=== PATIENT | male | born 1975 | race Caucasian/White ===

== ENCOUNTER 2018-08-16 17:54 | Emergency (ER) | payer MEDICAID ==
[~2018-08-16] VITALS: Ht 170.2 cm; Wt 70.3 kg
[2018-08-16 17:55] VITALS: BP 188/114
--- NOTE | 2018-08-16 17:55 | NUR ---
PT ARRIVED ALS TO ER ROOM 09
--- NOTE | 2018-08-16 17:55 | NUR ---
PT DENYING GOWN AT THIS TIME
--- NOTE | 2018-08-16 18:00 | NUR ---
BIBA. AAOX4. C/O UNSTOPPABLE NOSE BLEEDING, VOMITING WITH BLOOD X2 TODAY, BM WITH BLOOD X2 TODAY. C/O RINGING IN THE EARS. HEADACHE OF 5/10. PT STATES HE IS A CHRONIC DRINKER. CLEAR SPEECH. STEADY GAIT. 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 HOB UP. BED SIDE RAILS UP X1. ON LOW BED POSITION, LOCKED. ER MADE AWARE OF PT STATUS.
--- NOTE | 2018-08-16 18:05 | NUR ---
CALLED PT'S PER PT REQUEST. CALLED [phone] YOVANNY AND LEFT A MESSAGE.
--- NOTE | 2018-08-16 19:05 | NUR ---
REPORT RECIEVED FROM NORM FORREST. TRANSFER OF CARE AT THIS TIME
[2018-08-16] MEDS ORDERED: NACL 0.9% 500 ML IV SCH (19:07)
[2018-08-16] MEDS ORDERED: ONDANSETRON 4 MG/2 ML VIAL IVP ONE (19:10)
[2018-08-16] MEDS ORDERED: PANTOPRAZOLE 40 MG INJ VIAL IVP ONE (19:10)
--- NOTE | 2018-08-16 19:12 | NUR ---
EKG PERFORMED AT BEDSIDE.
--- NOTE | 2018-08-16 19:13 | NUR ---
Pt report given to NORM Cruz. Transfer of care at this time.
--- NOTE | 2018-08-16 19:32 | NUR ---
PT TAKEN TO RADIOLOGY
[2018-08-16 19:39] LABS: BASOPHILS # (AUTO) 0.1 K/uL (0.00-0.22); BASOPHILS % (AUTO) 1.2 % (0.0-2.0); EOSINOPHILS # (AUTO) 0.1 K/uL (0-0.4); EOSINOPHILS % (AUTO) 1.1 % (0.0-4.0); HEMATOCRIT 39.5 % (36-52); HEMOGLOBIN 13.1 g/dL (12.0-18.0); LYMPHOCYTES # (AUTO) 1.5 K/uL (2.0-11.5); LYMPHOCYTES % (AUTO) 28.6 % (20.5-51.1); MEAN CORPUSCULAR HEMOGLOBIN 30 pg (27-31); MEAN CORPUSCULAR HGB CONC 33 g/dL (33-37); MEAN CORPUSCULAR VOLUME 91.6 fL (80-94); MONOCYTES # (AUTO) 0.4 K/uL (0.8-1.0); MONOCYTES % (AUTO) 7.4 % (1.7-9.3); NEUTROPHILS # (AUTO) 3.3 K/uL (1.8-7.7); NEUTROPHILS % (AUTO) 61.7 % (42.2-75.2); PLATELET COUNT (AUTO) 210 K/uL (140-450); RED BLOOD CELL COUNT(AUTO) 4.31 MIL/uL (4.20-6.10); RED CELL DISTRIBUTION WIDTH 13.3 % (11.6-13.7); WHITE BLOOD COUNT (AUTO) 5.3 K/uL (4.8-10.8)
--- NOTE | 2018-08-16 19:41 | NUR ---
PT RETURN FROM RADIOLOGY
[2018-08-16 19:56] LABS: ALBUMIN 4.3 g/dL (3.4-5.0); ANION GAP 19.5 (8-16); CARBON DIOXIDE 23.6 mmol/L (21-32); CREATININE 0.6 mg/dL (0.7-1.3); POTASSIUM 4.1 mmol/L (3.5-5.1); TOTAL BILIRUBIN 0.3 mg/dL (0.0-1.0)
[2018-08-16] MEDS ORDERED: NACL 0.9% 1,000 ML IV ONE (20:40)
[2018-08-16] MEDS ORDERED: NACL 0.9% 1,000 ML IV SCH (21:38)
[2018-08-16] MEDS ORDERED: DOCUSATE SODIUM 100 MG GELCAP PO PRN (21:40)
[2018-08-16] MEDS ORDERED: ACETAMINOPHEN 325 MG TAB PO PRN (21:40)
[2018-08-16] MEDS ORDERED: HYDROcodone/APAP 7.5/325 MG 1 TAB PO PRN (21:40)
[2018-08-16] MEDS ORDERED: ONDANSETRON 4 MG/2 ML VIAL IM/IVP PRN (21:40)
[2018-08-16 21:58] VITALS: BP 138/92
--- NOTE | 2018-08-16 21:58 | NUR ---
PATIENT REFUSING ADMISSION. WISHING TO LEAVE AMA. Patient does not wish to proceed with medical care recommended by [facility]. Patient given information related to possible complications, up to and including , which could occur as a result of leaving hospital at this time. Patient verbalizes understanding of risks involved leaving against medical advice. Patient has signed AMA form.
[2018-08-16 23:41] LABS: CHOL/HDL RATIO 1.9 (1-4.5); MAGNESIUM 1.9 mg/dL (1.8-2.4); PHOSPHORUS 4.6 mg/dL (2.5-4.9); THYROID STIMULATING HORMONE 0.26 uIU/mL (0.34-3.74)
[2018-08-16 23:42] LABS: FREE T4 (FREE THYROXINE) 0.68 ng/dL (0.76-1.46)
[2018-08-17] MEDS ORDERED: LACTOBACILLUS RHAMNOSUS GG 1 EACH CAP PO SCH (09:00)
--- NOTE | 2018-08-25 12:20 | NUR ---
Late entry. Confirmed with RN that 500ml IV bolus 0.9 NS completed at 1900.
== END 2018-08-16 21:58 | disposition left against medical advice (07) ==
LOC: EDBD → MED 17:54 → MTU 21:38 → UNDOADMIN 21:38 → MED 21:58
DX: K92.2 Gastrointestinal hemorrhage, unspecified (principal); F10.129 Alcohol abuse with intoxication, unspecified; I10 Essential (primary) hypertension; Z88.0 Allergy status to penicillin
CPT/HCPCS: 36415; 71045; 74176; 80053; 80061; 82140; 82550; 82948; 83036; 83605; 83690; 83735; 83880; 84100; 84439; 84443; 84484; 85025; 85610; 85730; 87040; 93005; 96374; 96375; 99284; C9113; G0482; J2405; J7030; Q0092

== ENCOUNTER 2018-08-17 15:20 | Inpatient (IN) | payer MEDICAID ==
[~2018-08-17] VITALS: Ht 170.2 cm; Wt 64.4 kg
[2018-08-17 15:21] VITALS: BP 165/116
--- NOTE | 2018-08-17 15:36 | NUR ---
PT BIB SELF TO [facility] ED WITH THE CHIEF C/O EPISTAXIS FOR 3 DAYS. NO ACTIVE BLEEDING NOTED AT THIS TIME. DENIES ANY RECENT FALL OR INJURY. DENIES DIZZINESS. DENIES ANY OTHER PROBLEM AT THIS TIME. PT WAS HERE LAST NIGHT FOR SAME REASON. NOT TAKING ANY MEDICINE CURRENTLY PER PT. DENIES ANY RECENT FEVER. PT REPORTS OF HAVING BLOOD IN STOOL ALSO. ABDOMEN SOFT, ROUND AND NON-TENDER. ACTIVE BOWEL SOUND. DENIES N/V/D. ER AWARE.
--- NOTE | 2018-08-17 16:25 | NUR ---
PT BEING EVALUATED BY DIRECTOR OF PAYROLL AT THIS TIME.
--- NOTE | 2018-08-17 17:27 | NUR ---
PT SEEN BY DOLORES FERNANDEZ.
[2018-08-17 17:28] LABS: BASOPHILS # (AUTO) 0.1 K/uL (0.00-0.22); BASOPHILS % (AUTO) 0.9 % (0.0-2.0); EOSINOPHILS # (AUTO) 0.1 K/uL (0-0.4); EOSINOPHILS % (AUTO) 1.7 % (0.0-4.0); HEMATOCRIT 39.3 % (36-52); HEMOGLOBIN 13.3 g/dL (12.0-18.0); LYMPHOCYTES % (AUTO) 35.6 % (20.5-51.1); MEAN CORPUSCULAR HEMOGLOBIN 31 pg (27-31); MEAN CORPUSCULAR HGB CONC 34 g/dL (33-37); MEAN CORPUSCULAR VOLUME 92.4 fL (80-94); MONOCYTES # (AUTO) 0.4 K/uL (0.8-1.0); MONOCYTES % (AUTO) 6.2 % (1.7-9.3); NEUTROPHILS # (AUTO) 3.2 K/uL (1.8-7.7); NEUTROPHILS % (AUTO) 55.6 % (42.2-75.2); PLATELET COUNT (AUTO) 181 K/uL (140-450); RED BLOOD CELL COUNT(AUTO) 4.25 MIL/uL (4.20-6.10); WHITE BLOOD COUNT (AUTO) 5.8 K/uL (4.8-10.8)
[2018-08-17 17:40] LABS: CARBON DIOXIDE 26.3 mmol/L (21-32); CREATININE 0.6 mg/dL (0.7-1.3); POTASSIUM 4.3 mmol/L (3.5-5.1)
[2018-08-17] MEDS ORDERED: PANTOPRAZOLE 40 MG INJ VIAL IVP ONE (17:40)
[2018-08-17] MEDS ORDERED: ONDANSETRON 4 MG/2 ML VIAL IVP ONE (17:40)
[2018-08-17] MEDS ORDERED: NACL 0.9% 1,000 ML IV ONE (17:40)
[2018-08-17 18:15] LABS: TOTAL BILIRUBIN 0.3 mg/dL (0.0-1.0)
[2018-08-17 18:16] LABS: ALBUMIN 4.3 g/dL (3.4-5.0)
[2018-08-17 18:18] LABS: PROTHROMBIN TIME 9.4 secs (10.8-13.4)
--- NOTE | 2018-08-17 18:32 | NUR ---
PT APPEARS TO BE RELAXED, RESTING IN BED. NO NASAL BLEED NOTED AT THIS TIME. NO C/O DIZZINESS OR NAUSEA NOTED. NO C/O PAIN AT THIS TIME. SATURATING 97% IN ROOM AIR. ER MD AWARE OF VS.
[2018-08-17] MEDS ORDERED: HYDROcodone/APAP 7.5/325 MG 1 TAB PO PRN (18:45)
[2018-08-17] MEDS ORDERED: ONDANSETRON 4 MG/2 ML VIAL IM/IVP PRN (18:45)
[2018-08-17] MEDS ORDERED: ACETAMINOPHEN 325 MG TAB PO PRN (18:45)
[2018-08-17] MEDS ORDERED: DOCUSATE SODIUM 100 MG GELCAP PO PRN (18:45)
--- NOTE | 2018-08-17 19:07 | NUR ---
Patient will be admitted to care of Dr. Pike. Admited to tele unit. Will go to room 105B. Belongings list completed.
[2018-08-17] MEDS ORDERED: hydrALAZINE 20 MG/ML VIAL IVP PRN (19:10)
--- NOTE | 2018-08-17 19:15 | NUR ---
PT TRANSFERRED TO TELE UNIT 105B VIA GURELIZABETH ON STABLE CONDITION. REPORT GIVEN TO NORM RG. BELONGINGS WITH PATIENT.
--- NOTE | 2018-08-17 19:20 | NUR ---
RECEIVED REPORT FROM CRANE HOOKERNORM ACOSTA FOR CONTINUITY OF CARE. PT IS A/OX4, ON ROOM AIR. PT IS ABLE TO FOLLOW COMMANDS, ABLE TO MAKE NEEDS KNOWN. AMBULATES WITH STEADY GAIT AND SKIN IS INTACT. PT HAS A 20G IV TO RIGHT AC, ASYMPTOMATIC AND INTACT. NO SIGNS OF DISTRESS NOTED AT THIS TIME. DISCUSSED PLAN OF CARE WITH PT, PT VERBALIZED UNDERSTANDING. PT DENIES PAIN. VITAL SIGNS STABLE. POSITIONED PT FOR COMFORT. BED IN LOWEST POSITION AND CALL LIGHT WITHIN REACH. WILL CONTINUE TO MONITOR. MRSA SWAB OBTAINED AND SENT TO LAB.
[2018-08-17 19:48] LABS: CHOL/HDL RATIO 1.8 (1-4.5); MAGNESIUM 1.8 mg/dL (1.8-2.4); PHOSPHORUS 3.8 mg/dL (2.5-4.9)
[2018-08-17 20:00] VITALS: BP 152/90
[2018-08-17 20:04] LABS: APPEARANCE,URINE CLEAR (CLEAR); BILIRUBIN,URINE NEGATIVE (NEGATIVE); BLOOD, URINE NEGATIVE (NEGATIVE); COLOR,URINE YELLOW (YELLOW); LEUKOCYTE ESTERASE ,URINE NEGATIVE (NEGATIVE); NITRITE, URINE NEGATIVE (NEGATIVE); PH,URINE 5.5 (5.0-9.0); UGLUCOSE NEGATIVE (NEGATIVE)
[2018-08-17 20:10] LABS: FREE T4 (FREE THYROXINE) 0.65 ng/dL (0.76-1.46); THYROID STIMULATING HORMONE 0.33 uIU/mL (0.34-3.74)
[2018-08-17 20:10] LABS: BARBITURATE, URINE NEG. ng/ml (NEG <=200); BENZODIAZEPINE, URINE NEG. ng/mL (NEG <=200); CANNABINOID, URINE NEG. ng/mL (NEG <=50); COCAINE, URINE NEG. ng/mL (NEG <=300); OPIATE, URINE NEG. ng/mL (NEG <=2000); PHENCYCLIDINE SCREEN,URINE NEG. ng/mL (NEG <=25)
[2018-08-17] MEDS ORDERED: LORazepam 2 MG/ML VIAL IVP SCH (21:00)
[2018-08-17] MEDS: DEXT 5% /NACL 0.9% 1,000 ML IV SCH (21:00)
[2018-08-17] MEDS: ATORVASTATIN 20 MG TAB PO SCH (21:12)
--- NOTE | 2018-08-17 21:15 | NUR ---
ADMINISTERED SCHEDULED MEDICATIONS, PT TOLERATED WELL. BED IN LOWEST POSITION, CALL LIGHT WITHIN REACH. WILL CONTINUE TO MONITOR.
[2018-08-18] VITALS: BP 148/81
--- NOTE | 2018-08-18 | NUR ---
VITAL SIGNS STABLE, NO SIGNS OF DISTRESS NOTED. POSITIONED PT FOR COMFORT. BED IN LOWEST POSITION AND CALL LIGHT WITHIN REACH. WILL CONTINUE TO MONITOR.
[2018-08-18] MEDS ORDERED: PNEUMOCOCCAL VACCINE 23 MCG/0.5 ML VIAL IMVAC ONE (01:10)
[2018-08-18] MEDS ORDERED: PNEUMOCOCCAL VACCINE 23 MCG/0.5 ML VIAL IMVAC PRN (01:40)
[2018-08-18] MEDS ORDERED: LORazepam 2 MG/ML VIAL IVP PRN (03:05)
[2018-08-18 04:00] VITALS: BP 143/86
[2018-08-18] MEDS: LORazepam 2 MG/ML VIAL IVP SCH ×3 (05:52→21:08)
[2018-08-18] MEDS: DEXT 5% /NACL 0.9% 1,000 ML IV SCH ×2 (05:52→19:50)
[2018-08-18] MEDS ORDERED: LORazepam 1 MG TAB PO SCH (06:00)
[2018-08-18 06:41] LABS: BASOPHILS % (AUTO) 0.6 % (0.0-2.0); EOSINOPHILS # (AUTO) 0.1 K/uL (0-0.4); EOSINOPHILS % (AUTO) 2.3 % (0.0-4.0); HEMATOCRIT 37.4 % (36-52); HEMOGLOBIN 12.6 g/dL (12.0-18.0); LYMPHOCYTES # (AUTO) 1.2 K/uL (2.0-11.5); LYMPHOCYTES % (AUTO) 26.4 % (20.5-51.1); MEAN CORPUSCULAR HEMOGLOBIN 31 pg (27-31); MEAN CORPUSCULAR HGB CONC 34 g/dL (33-37); MEAN CORPUSCULAR VOLUME 92.9 fL (80-94); MONOCYTES # (AUTO) 0.4 K/uL (0.8-1.0); MONOCYTES % (AUTO) 9.5 % (1.7-9.3); NEUTROPHILS # (AUTO) 2.9 K/uL (1.8-7.7); NEUTROPHILS % (AUTO) 61.2 % (42.2-75.2); PLATELET COUNT (AUTO) 155 K/uL (140-450); RED BLOOD CELL COUNT(AUTO) 4.02 MIL/uL (4.20-6.10); RED CELL DISTRIBUTION WIDTH 13.7 % (11.6-13.7); WHITE BLOOD COUNT (AUTO) 4.7 K/uL (4.8-10.8)
[2018-08-18 07:05] LABS: ANION GAP 16.2 (8-16); CARBON DIOXIDE 25.9 mmol/L (21-32); CREATININE 0.6 mg/dL (0.7-1.3); POTASSIUM 4.1 mmol/L (3.5-5.1)
[2018-08-18 07:06] LABS: MAGNESIUM 1.6 mg/dL (1.8-2.4); PHOSPHORUS 3.8 mg/dL (2.5-4.9)
--- NOTE | 2018-08-18 07:35 | NUR ---
ENDORSED PT TO DAY SHIFT NORM CRONIN FOR CONTINUITY OF CARE. PT IN STABLE CONDITION.
--- NOTE | 2018-08-18 07:40 | NUR ---
RECEIVED PT FROM SUPERVISOR TRUST ACCOUNTS NURSEARCENIO, PT IS AWAKE AND LYING ON THE BED WITH A PERIPHERAL LINE ON THE LEFT AC G.20 WITH D5NS INFUSING AT 80ML/HR, INTACT, PT DENIES PAIN AND NO SOB NOTED, SAFETY PRECAUTION INITIATED AND NO SIGN OF DISTRESS NOTED. WILL MONITOR PT.
[2018-08-18 08:00] VITALS: BP 160/100
--- NOTE | 2018-08-18 08:10 | NUR ---
PATIENT HAS BEEN SCREENED AND CATEGORIZED MODERATE NUTRITION RISK. PATIENT WILL BE SEEN WITHIN 3-5 DAYS OF ADMISSION. 08/19/18NEL RAJAN RD
[2018-08-18] MEDS ORDERED: MULTIVITAMIN-12 10 ML, THIAMINE 100 MG, MAGNESIUM SULFATE 50% 2,000 MG, FOLIC ACID 1 MG... IV SCH ×5 (09:00)
[2018-08-18] MEDS: FOLIC ACID 1 MG TAB PO SCH (09:35)
[2018-08-18] MEDS: THIAMINE 100 MG TAB PO SCH (09:35)
[2018-08-18] MEDS: MULTIVITAMIN 1 TAB PO SCH (09:35)
[2018-08-18] MEDS: PANTOPRAZOLE 40 MG INJ VIAL IVP SCH (09:35)
[2018-08-18 12:00] VITALS: BP 157/98
--- NOTE | 2018-08-18 12:18 | NUR ---
PT IS AWAKE AND VITAL SIGNS CHECKED DONE AND BP IS 162/99, PULSE IS 89, O2 SATURATION IS 98%, RESPIRATION IS 18/MIN, DR. BRAND WAS INFORMED OF PT'S BP RESULT. IV MEDICATION WAS GIVEN AND PT TOLERATED IT. WILL RE-CHECK BP.
--- NOTE | 2018-08-18 12:23 | NUR ---
PT; BP WAS RECHECKED AND RESULT IS 157/98, PULSE IS 86, TEMPERATURE IS 98.3, O2 SATURATION IS 98% AND RESPIRATION IS 18/MIN. WILL MONITOR PT.
--- NOTE | 2018-08-18 14:14 | NUR ---
DR. BRAND MADE A VERBAL ORDER TO GIVE ATIVAN TO PT AGAIN IF BP IS STILL HIG, ACKNOWLEDGED AND WILL CARRY OUT VERBAL ORDER.
--- NOTE | 2018-08-18 14:37 | NUR ---
PT IS AWAKE AND SEATED ON THE CHAIR WATCHING ON HIS CP, VITAL SIGNS CHECKED AND BP IS 168/101, PULSE IS 98, O2 SATURATION IS 98%, ATIVAN WAS GIVEN AND PT TOLERATED IT. WILL MONITOR PT.
--- NOTE | 2018-08-18 14:40 | NUR ---
DR. DIGGS CAME TO THE PT'S ROOM AND SPOKE TO PT AND ASKED THE PT IF PT AGREES TO HAVE A COLONOSCOPY AND EGD AND PT AGREED AND ACKNOWLEDGE TO SIG THE CONSENTS.
[2018-08-18] MEDS ORDERED: BOWEL EVACUANT DRINK 4,000 ML PDS PO SCH (15:15)
--- NOTE | 2018-08-18 15:36 | NUR ---
PT SIGNED THE CONSENTS FOR EGD AND COLONOSCOPY, AND VERBALIZED UNDERSTANDING, BOWEL PREPARATION WAS GIVEN AND INSTRUCTION WAS ASID TO PT WELL.
[2018-08-18 16:00] VITALS: BP 167/108
[2018-08-18] MEDS: SENNA 8.6 MG TAB PO SCH ×2 (17:19→21:07)
--- NOTE | 2018-08-18 17:29 | NUR ---
PT IS AWAKE AND SEATED ON THE CHAIR, VITAL SIGNS TAKEN AND INFORMATION ENGINEER IS 167/108, PULSE IS 90, O2 SATURATION IS 99%, BP MEDICATION AND MAGNESIUM SULFATE TABLETS WERE GIVEN AND PT TOLERATED IT. WILL MONITOR PT.
[2018-08-18] MEDS ORDERED: MAGNESIUM OXIDE 400 MG TAB PO SCH (17:30)
[2018-08-18] MEDS ORDERED: LISINOPRIL 10 MG TAB PO SCH (17:30)
--- NOTE | 2018-08-18 18:22 | NUR ---
PT WAS GIVEN HYDRALAZINE VIA IVP FOR THE BP RESULT OF 191/116, PULSE IS 91, O2 SATURATION IS 99%, DR. BRAND WAS INFORMED OF PT'S BP RESULT. WILL RE-ASSESS BP AND MONITOR PT.
--- NOTE | 2018-08-18 19:22 | NUR ---
ENDORSED PT TO GETTER WELDER NURSES, AUBRIE FOR CONTINUITY OF CARE, ON THE BEDSIDE.
--- NOTE | 2018-08-18 19:23 | NUR ---
RECEIVED BEDSIDE REPORT FROM DAY SHIFT RNMEHRDAD, PATIENT SITTING UP IN BED NO SIGNS OF DISTRESS ON RA, AT BEDSIDE. IV INFUSING WELL TO RIGHT AC 20G, WILL CONTINUE TO MONITOR.
[2018-08-18 20:00] VITALS: BP 162/96
[2018-08-18] MEDS ORDERED: MAGNESIUM CITRATE 300 ML BTL PO SCH (21:00)
[2018-08-18] MEDS: LACTULOSE 20 GM/30 ML UDC PO SCH (21:07)
[2018-08-18] MEDS: ATORVASTATIN 20 MG TAB PO SCH (21:08)
--- NOTE | 2018-08-18 22:30 | NUR ---
PATIENT RESTING IN BED, WATCHING TV, NO SIGNS OF DISTRESS ON RA, PATIENT HAS FINISHED HIS GOLYTELY AND IS DRINKING HIS CITROMA. ENCOURAGED PATIENT TO COMPLETE BOWEL PREP.
[2018-08-19] VITALS: BP 153/102
--- NOTE | 2018-08-19 00:30 | NUR ---
PATIENT IS SLEEPING IN BED, NO SIGNS OF DISTRESS ON RA, CALL LIGHT IN REACH AND BED IN LOW POSITION.
--- NOTE | 2018-08-19 02:30 | NUR ---
PATIENT SLEEPING, NO SIGNS OF DISTRESS ON RA, WILL CONTINUE TO MONITOR.
[2018-08-19 04:00] VITALS: BP 150/91
--- NOTE | 2018-08-19 05:23 | NUR ---
PATIENT AMBULATED TO BATHROOM AND IS NOW RESTING COMFORTABLY IN BED, NO SIGNS OF DISTRESS ON RA.
--- NOTE | 2018-08-19 05:26 | NUR ---
PATIENT HAS COMPLETED BOWEL PREP, STOOL IS CLEAR AND WATERY.
[2018-08-19] MEDS: LORazepam 2 MG/ML VIAL IVP SCH ×2 (05:33→13:00)
--- NOTE | 2018-08-19 06:11 | NUR ---
PATIENT IS READY FOR COLONOSCOPY AND EGD, WATERY STOOLS, WILL BE ENDORSED TO DAY SHIFT RN FOR CONTINUITY OF CARE.
[2018-08-19 07:03] LABS: ANION GAP 14.7 (8-16); CARBON DIOXIDE 26.1 mmol/L (21-32); CREATININE 0.7 mg/dL (0.7-1.3); POTASSIUM 3.8 mmol/L (3.5-5.1)
[2018-08-19 07:04] LABS: PHOSPHORUS 3.3 mg/dL (2.5-4.9)
[2018-08-19 07:08] LABS: BASOPHILS % (AUTO) 0.7 % (0.0-2.0); EOSINOPHILS # (AUTO) 0.1 K/uL (0-0.4); EOSINOPHILS % (AUTO) 2.9 % (0.0-4.0); HEMOGLOBIN 12.7 g/dL (12.0-18.0); LYMPHOCYTES # (AUTO) 1.4 K/uL (2.0-11.5); LYMPHOCYTES % (AUTO) 28.3 % (20.5-51.1); MEAN CORPUSCULAR HEMOGLOBIN 31 pg (27-31); MEAN CORPUSCULAR HGB CONC 33 g/dL (33-37); MEAN CORPUSCULAR VOLUME 93.4 fL (80-94); MONOCYTES # (AUTO) 0.8 K/uL (0.8-1.0); MONOCYTES % (AUTO) 15.4 % (1.7-9.3); NEUTROPHILS # (AUTO) 2.6 K/uL (1.8-7.7); NEUTROPHILS % (AUTO) 52.7 % (42.2-75.2); PLATELET COUNT (AUTO) 143 K/uL (140-450); RED BLOOD CELL COUNT(AUTO) 4.07 MIL/uL (4.20-6.10); RED CELL DISTRIBUTION WIDTH 13.5 % (11.6-13.7)
--- NOTE | 2018-08-19 07:21 | NUR ---
ENDORSED TO DAY SHIFT RN, MEHRDAD, FOR CONTINUITY OF CARE. PATIENT IN STABLE CONDITION.
--- NOTE | 2018-08-19 07:30 | NUR ---
RECEIVED PT FROM HEAD NURSE NURSE, AUBRIE, PT IS AWAKE AND LYING ON THE BED WITH AN IV LINE ON THE RT AC G. 20 WITH D5NS INFUSING AST 80ML/HR, INTACT. SIDE RAILS ARE UP AND CALL LIGHT WITHIN REACH, PT DENIES PAIN AND WAS PLACED ON NPO EXCEPT MEDS, NO SIGN OF DISTRESS NOTED AND WILL MONITOR PT.
[2018-08-19 08:00] VITALS: BP 158/102
--- NOTE | 2018-08-19 08:15 | NUR ---
PT IS AWAKE AND VITAL SIGNS CHECKED AND BP IS 168/102, PULSE IS 68, O2 SATURATION IS 100%, TEMPERATURE IS 97.9 AND RESPIRATION IS 16/MIN, DR. BRAND WAS INFORMED OF PT'S BP RESULT AND SAID THAT HE WILL PLACE AN ORDER AND INCREASE THE DOSE OF PT'S BP MEDICATION.
[2018-08-19] MEDS: DEXT 5% /NACL 0.9% 1,000 ML IV SCH (08:49)
[2018-08-19] MEDS ORDERED: MAGNESIUM OXIDE 400 MG TAB PO SCH (09:00)
[2018-08-19] MEDS ORDERED: LISINOPRIL 10 MG TAB PO SCH ×2 (09:00→11:00)
[2018-08-19] MEDS: LACTULOSE 20 GM/30 ML UDC PO SCH (09:21)
[2018-08-19] MEDS: SENNA 8.6 MG TAB PO SCH ×3 (09:21→17:00)
[2018-08-19] MEDS: MULTIVITAMIN 1 TAB PO SCH (09:22)
[2018-08-19] MEDS: FOLIC ACID 1 MG TAB PO SCH (09:22)
[2018-08-19] MEDS: THIAMINE 100 MG TAB PO SCH (09:22)
[2018-08-19] MEDS: PANTOPRAZOLE 40 MG INJ VIAL IVP SCH (09:23)
--- NOTE | 2018-08-19 10:30 | NUR ---
PT WAS DOWNGRADE TO MED-SURG NOW, MATERNAL CHILD NURSE WAS REMOVED.
--- NOTE | 2018-08-19 11:34 | NUR ---
PT IS AWAKE AND SEATED ON THE CHAIR, VITAL SIGNS CHECKED AND BP IS 166/115, PULSE IS 82, O2 SATURATION IS 98%, TEMPERATURE IS 98.2, PT DENIES PAIN AND NO SIGN OF DISTRESS NOTED, LISINOPRIL WAS GIVEN AND PT TOLERATED IT. WILL MONITOR PT.
[2018-08-19 12:00] VITALS: BP 155/91
[2018-08-19] MEDS ORDERED: fentaNYL 0.05 MG/ML VIAL ONE ×3 (13:09→13:33)
[2018-08-19] MEDS ORDERED: MIDAZOLAM 2 MG/2 ML VIAL ONE ×3 (13:09→13:34)
[2018-08-19] MEDS ORDERED: diphenhydrAMINE 50 MG/ML VIAL ONE (13:10)
--- NOTE | 2018-08-19 14:00 | NUR ---
PT IS BACK TO ROOM FROM COLONOSCOPY AND EGD, PT IS STABLE.
[2018-08-19] MEDS ORDERED: LABETALOL 100 MG/20 ML VIAL ONE ×2 (14:24→14:25)
[2018-08-19] MEDS ORDERED: MIDAZOLAM 2 MG/2 ML VIAL IVP ONE (14:25)
[2018-08-19] MEDS ORDERED: fentaNYL 0.05 MG/ML VIAL IVP ONE (14:25)
[2018-08-19] MEDS ORDERED: LABETALOL 100 MG/20 ML VIAL IVP SCH (14:30)
[2018-08-19] MEDS ORDERED: SERT-146 PO (14:54)
[2018-08-19] MEDS ORDERED: LISI-420 PO (14:55)
[2018-08-19] MEDS ORDERED: MULT-1305 PO (14:57)
[2018-08-19 16:00] VITALS: BP 138/70
--- NOTE | 2018-08-19 17:10 | NUR ---
DISCHARGED PT BY HIMSELF AND ACCOMPANIED TO THE LOBBY, DISCHARGED TEACHING AND INSTRUCTIONS WERE GIVEN AND PT VERBALIZED UNDERSTANDING. IV LINE AND ARM BAND WERE REMOVED, VITAL SIGNS CHECKED DONE AND BP IS 138/70, PULSE IS 87, O2 SATURATION IS 100%, TEMPERATURE IS 97.5 AND PT DENIES ANY PAIN NOW. PT IS STABLE.
[2018-08-19] MEDS ORDERED: traZODone 50 MG TAB PO SCH (21:00)
[2018-08-19] MEDS ORDERED: METOPROLOL 50 MG TAB PO SCH (21:00)
[2018-08-20] MEDS ORDERED: PSYLLIUM 12.2 GM/PKT PO SCH (09:00)
[2018-08-20] MEDS ORDERED: LISINOPRIL 10 MG TAB PO SCH (09:00)
== END 2018-08-19 17:10 | disposition home or self-care (01) | DRG 254 ==
LOC: EDBD → MED 15:20 → MTU 18:44
PROVIDERS: ADMIT General Practice; ATTEND General Practice
PROC: 0DBP8ZZ Excision of Rectum, Via Natural or Artificial Opening Endoscopic (ICD-10-PCS; 2018-08-19)
PROC: 0DB78ZX Excision of Stomach, Pylorus, Via Natural or Artificial Opening Endoscopic, Diagnostic (ICD-10-PCS; principal; 2018-08-19 15:50)
PROC: 0DBG8ZZ Excision of Left Large Intestine, Via Natural or Artificial Opening Endoscopic (ICD-10-PCS; 2018-08-19 15:50)
DX: K64.8 Other hemorrhoids (principal); G92 Toxic encephalopathy; K57.91 Diverticulosis of intestine, part unspecified, without perforation or abscess with bleeding; E83.42 Hypomagnesemia; E07.81 Sick-euthyroid syndrome; E78.5 Hyperlipidemia, unspecified; F41.9 Anxiety disorder, unspecified; Z88.0 Allergy status to penicillin; R74.0 Nonspecific elevation of levels of transaminase and lactic acid dehydrogenase [LDH]; D72.819 Decreased white blood cell count, unspecified; K63.5 Polyp of colon; F32.9 Major depressive disorder, single episode, unspecified; F10.239 Alcohol dependence with withdrawal, unspecified; G47.00 Insomnia, unspecified; I10 Essential (primary) hypertension
CPT/HCPCS: 36415; 71045; 76700; 80048; 80053; 80305; 81003; 82140; 82550; 83605; 83690; 83735; 83880; 84100; 84439; 84443; 84484; 85025; 85610; 85730; 86677; 86886; 86900; 86901; 87081; 88305; 93005; 99285; A9153; C9113; G0482; J0360; J1200; J2060; J2250; J2405; J3010; J3411; J3475; J3490; J7030; J7042; Q0092

== ENCOUNTER 2018-09-18 10:07 | Emergency (ER) | payer SELFPAY ==
[~2018-09-18] VITALS: Ht 165.1 cm; Wt 56.7 kg
[~2018-09-18 10:07] MED LIST: LISI-420 PO; MULT-1305 PO; SERT-146 PO
[2018-09-18 10:37] VITALS: BP 154/92
--- NOTE | 2018-09-18 10:41 | NUR ---
PT TO ER BED 2
--- NOTE | 2018-09-18 10:46 | NUR ---
44 Y MALE BIB C/O RIGHT KNEE LACERATION REPAIRED IN [facility] LAST WEEK. 3 CECI REMAIN INTACT. +SWELLING, +REDNESS NOTED SURROUNDING WOUND. NO PURULENT DRAINAGE NOTED. PALPABLE PEDAL PULSE, CAP REFILL <3 SECONDS. 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 AA0X4. BED IS DOWN, LOCKED, BED RAIL X 1, ERMD TO SEE PT. HX--ALCOHOLISM, HTN RX--NONE
--- NOTE | 2018-09-18 11:33 | NUR ---
CECI REMOVED BY SOLO MADRID, DR MAIN MADE AWARE
[2018-09-18] MEDS ORDERED: BACITRACIN OINT 500 UNITS/GM PKT TP ONE (11:55)
[2018-09-18] MEDS ORDERED: CLINDAMYCIN 600 MG/4 ML VIAL IM ONE (11:55)
[2018-09-18 12:19] VITALS: BP 141/89
== END 2018-09-18 12:19 | disposition home or self-care (01) ==
LOC: MED 10:07
DX: T81.49XA Infection following a procedure, other surgical site, initial encounter (principal); L08.9 Local infection of the skin and subcutaneous tissue, unspecified; I10 Essential (primary) hypertension; Z88.0 Allergy status to penicillin; Z79.899 Other long term (current) drug therapy
CPT/HCPCS: 29505; 90471; 90715; 96372; 99284; J3490

== ENCOUNTER 2019-06-21 22:31 | Emergency (ER) | payer SELFPAY ==
--- NOTE | 2019-06-21 23:00 | NUR ---
PATIENT CALLED TO BE TRIAGE NO RESPONSE PATIENT LEFT WITHOUT BEING SEEN BY DR. MAIN. NO FURTHER CARE PROVIDED FOR PATIENT.
--- NOTE | 2019-06-21 23:05 | NUR ---
CALLED FOR THE SECOND TIME ,NO RESPONSE
--- NOTE | 2019-06-21 23:10 | NUR ---
CALLED FOR THE THIRD TIME , NO RESPONSE
== END 2019-06-21 23:00 | disposition left against medical advice (07) ==
LOC: MED 22:31
DX: R42 Dizziness and giddiness (principal); Z53.21 Procedure and treatment not carried out due to patient leaving prior to being seen by health care provider

== ENCOUNTER 2020-02-10 17:54 | Emergency (ER) | payer SELFPAY ==
[~2020-02-10] VITALS: Ht 170.2 cm; Wt 68.0 kg
[2020-02-10 17:56] VITALS: BP 159/97
--- NOTE | 2020-02-10 18:02 | NUR ---
PT PRESENTS TO THE ER WITH LACERATION TO LEFT 3RD DIGIT WHILE USING A SAW. VISIBLE DEFORMITY, WITH TISSUE MISSING, NO ACTIVELY BLEEDING AT THIS TIME. RADIAL PULSES PALPABLE +2. CMS+. SKIN IS PINK/WARM/DRY; AAOX4 WITH EVEN AND STEADY GAIT; PT DENIES ANY FEVER, CP, SOB, OR COUGH AT THIS TIME; PATIENT STATES PAIN OF 0/10 AT THIS TIME; VSS; PATIENT POSITIONED FOR COMFORT; HOB ELEVATED; BEDRAILS UP X1; BED DOWN. ER MD MADE AWARE OF PT STATUS.
--- NOTE | 2020-02-10 18:03 | NUR ---
PATIENT AMBULATED TO ER BED 12
[2020-02-10] MEDS ORDERED: KETOROLAC 60 MG/2 ML VIAL IM ONE (18:10)
[2020-02-10] MEDS ORDERED: BACITRACIN OINT 500 UNITS/GM PKT TP ONE (18:10)
[2020-02-10] MEDS ORDERED: LIDOCAINE MPF 1% 10 MG/ML VIAL INJ ONE (18:10)
--- NOTE | 2020-02-10 18:15 | NUR ---
XRAY IS AT BEDSIDE.
--- NOTE | 2020-02-10 19:01 | NUR ---
APPLIED BACITRACIN TO PT LAC, PT LAC DRESSED WITH NON ADHERENT GUAZE PAD AND WRAPPED WITH 2" GUAZE ROLL, PT FINGER PLACED IN 2" ALUMINUM FINGER SPLINT. PA AND RN NOTIFIED
[2020-02-10 19:12] VITALS: BP 141/87
--- NOTE | 2020-02-10 19:12 | NUR ---
Patient discharged with v/s stable. Written and verbal after care instructions given and explained. Patient alert, oriented and verbalized understanding of instructions. Ambulatory with steady gait. All questions addressed prior to discharge. ID band removed. Patient advised to follow up with PMD. Rx of Cephalexin and Naprosyn given. Patient educated on indication of medication including possible reaction and side effects. Opportunity to ask questions provided and answered.
== END 2020-02-10 19:12 | disposition home or self-care (01) ==
LOC: MED 17:54
DX: S62.633A Displaced fracture of distal phalanx of left middle finger, initial encounter for closed fracture (principal); W45.8XXA Other foreign body or object entering through skin, initial encounter; Y93.89 Activity, other specified; Y92.89 Other specified places as the place of occurrence of the external cause; Y99.8 Other external cause status; I10 Essential (primary) hypertension; Z88.0 Allergy status to penicillin; Z79.899 Other long term (current) drug therapy
CPT/HCPCS: 11760; 73140; 90471; 90715; 96372; 99284; J1885; J2001; Q0092; 99283

== ENCOUNTER 2020-02-26 14:49 | Emergency (ER) | payer SELFPAY ==
[~2020-02-26] VITALS: Ht 170.2 cm; Wt 68.0 kg
[2020-02-26 14:50] VITALS: BP 150/103
--- NOTE | 2020-02-26 14:57 | NUR ---
Ambulated to bed 8
--- NOTE | 2020-02-26 15:00 | NUR ---
PT C/O SUTURE REMOVAL TO LEFT MIDDLE FINGER THAT WAS DONE 14 DAYS AGO IN [facility]. SLIGHT PUS AND SWELLING NOTICED ON THE TIP OF LEFT MIDDLE FINGER. PT DENIES ANY PAIN, FEVER, CHILLS.
[2020-02-26 15:55] VITALS: BP 141/95
--- NOTE | 2020-02-26 15:55 | NUR ---
Patient discharged with v/s stable. Written and verbal after care instructions given and explained. Patient verbalized understanding. Ambulatory with steady gait. All questions addressed prior to discharge. Advised to follow up with PMD.
== END 2020-02-26 15:55 | disposition home or self-care (01) ==
LOC: MED 14:49
DX: S60.121A Contusion of right index finger with damage to nail, initial encounter (principal); I10 Essential (primary) hypertension; Z79.899 Other long term (current) drug therapy; X58.XXXA Exposure to other specified factors, initial encounter; Y93.89 Activity, other specified; Y92.89 Other specified places as the place of occurrence of the external cause; Y99.8 Other external cause status
CPT/HCPCS: 11740; 99282; 99284